=== PATIENT | male | born 1960 | race Caucasian/White ===

== ENCOUNTER 2018-04-29 10:35 | Emergency (ER) | payer OTHER ==
[~2018-04-29] VITALS: Ht 182.9 cm; Wt 98.4 kg
[~2018-04-29 10:35] MED LIST: ETOMIDATE 40 MG/20 ML VIAL. IV ONE; MIDAZOLAM HCL PF 5 MG/5 ML VIAL. ONE; PROPOFOL 10,000 MCG/ML (20ML) VIAL IV ONE; SUCCINYLCHOLINE 200 MG/10 ML VIAL. ONE
[2018-04-29] MEDS ORDERED: IV NORMAL SALINE 1,000ML 1,000 ML IV SCH (10:46)
[2018-04-29] MEDS ORDERED: IPRATRPIUM/ALBUTEROL 0.5/2.5MG 3 ML NEBU. NEB ONE (11:00)
[2018-04-29] MEDS ORDERED: methylPREDNISolone SOD SUCC PF 125 MG/2 ML VIAL. IV ONE (11:00)
--- NOTE | 2018-04-29 11:19 | RAD ---
Portable chest, 04/29/2018: HISTORY: Shortness of breath The heart size is normal. There is attenuation of the pulmonary vasculature in the upper lobes, particularly on the right, suggesting emphysema. No pulmonary consolidation is seen. There is no evidence of pleural fluid. IMPRESSION: 1. Probable emphysema. 2. No acute infiltrates. Electronically signed by: Rhys Vela MD (04/29/2018 11:16 AM) [facility]
[2018-04-29 11:22] LABS: BGAS PH 7.24 (7.35-7.46)
[2018-04-29 11:25] LABS: BASO % 0 % (0-3); EOS % 0 % (0-3); HEMATOCRIT 39.9 % (39.0-53.0); HEMOGLOBIN 12.4 g/dL (13.0-17.5); LYMPH # 0.4 x10^3/uL (1.0-4.8); LYMPH % 4 % (24-48); MEAN CORPUSCULAR HEMOGLOBIN 30 pg (25-35); MEAN CORPUSCULAR HGB CONC 31 g/dL (31-37); MEAN CORPUSCULAR VOLUME 98 fL (79-100); MONO # 0.5 x10^3/uL (0.0-1.1); MONO % 5 % (0-9); NEUT % 91 % (31-73); PLATELET COUNT 199 x10^3/uL (140-400); RED BLOOD COUNT 4.08 x10^6/uL (4.30-5.70); RED CELL DISTRIBUTION WIDTH 13.9 % (11.5-14.5)
[2018-04-29 11:46] LABS: INFLUENZA A PATIENT NEGATIVE (NEGATIVE); INFLUENZA B PATIENT NEGATIVE (NEGATIVE)
--- NOTE | 2018-04-29 11:48 | PHYS DOC ---
Past History Past Medical History: COPD, Depression Past Surgical History: Other Smoking: Non-smoker Alcohol Use: None Drug Use: None Social History Narrative: hx of drug use Adult General Chief Complaint Chief Complaint: SHORTNESS OF BREATH HPI HPI Patient is a 58 year old male who brought in by EMS because of shortness of breath and hypoxia. Patient has had history of COPD and usually takes 4 L of oxygen but for the last few days increase his oxygen to 5 and 60 L. The patient had increasing of shortness of breath with dry cough for the last 2 days without fever and chills, chest pain, sick contact. EMS reported that patient had O2 sat of 80% at 6 L of oxygen that improved with nonrebreathing mask and DuoNeb to 99% at arrival to ER. Patient refuses to answer most of the question and his helping for the history. Patient had history of intubation and admitting at [facility] previously and states he does not want to have intubation as long as possible. Review of Systems Review of Systems Constitutional: Denies fever or chills [] Eyes: Denies change in visual acuity, redness, or eye pain [] HENT: Denies nasal congestion or sore throat [] Respiratory: Reports cough and shortness of breath. Cardiovascular: No additional information not addressed in HPI [] GI: Denies abdominal pain, nausea, vomiting, bloody stools or diarrhea [] : Denies dysuria or hematuria [] Musculoskeletal: Denies back pain or joint pain [] Integument: Denies rash or skin lesions [] Neurologic: Denies headache, focal weakness or sensory changes [] Endocrine: Denies polyuria or polydipsia [] All other systems were reviewed and found to be within normal limits, except as documented in this note. Current Medications Current Medications Current Medications Medications (Trade) Dose Ordered Sig/Nelson Start Time Stop Time Status Last Admin Dose Admin Albuterol/ Ipratropium (Duoneb) 3 ml 1X ONCE 04/29/18 11:00 04/29/18 11:17 DC Methylprednisolone Sodium Succinate (SOLU-Medrol 125MG VIAL) 125 mg 1X ONCE 04/29/18 11:00 04/29/18 11:17 DC 04/29/18 11:11 125 MG Sodium Chloride 1,000 ml @ 1,000 mls/hr Q1H 04/29/18 10:46 04/29/18 11:45 DC 04/29/18 11:10 1,000 MLS/HR Allergies Allergies Allergies Coded Allergies Type Severity Reaction Last Updated Verified Penicillins Allergy Unknown 04/29/18 Yes hydrocodone Allergy Unknown 04/29/18 Yes Physical Exam Physical Exam Constitutional: Well nourished, moderate distress, non-toxic appearance. [] HENT: Normocephalic, atraumatic, oropharynx moist.] Eyes: PERRLA, EOMI, conjunctiva normal, no discharge. [] Neck: Normal range of motion, no tenderness, supple, no stridor. [] Cardiovascular: Tachycardia, no murmur [] Lungs & Thorax: Hyperventilation and tachypnea with moderate respiratory distress and decrease of bilateral air movement Abdomen: Bowel sounds normal, soft, no tenderness, no masses, no pulsatile masses. [] Skin: Warm, dry, no erythema, no rash. [] Back: No tenderness, no CVA tenderness. [] Extremities: No tenderness, no cyanosis, no clubbing, ROM intact, no edema. [] Neurologic: Alert and oriented X 3, normal motor function, no focal deficits noted. [] Psychologic: Affect is anxious Current Patient Data Vital Signs Vital Signs Date Time Temp Pulse Resp B/P (MAP) Pulse Ox O2 Delivery O2 Flow Rate FiO2 04/29/18 11:36 134 19 133/99 (110) 86 BiPAP/CPAP 04/29/18 10:40 98.4 6.0 Lab Results Laboratory Tests Test 04/29/18 10:46 04/29/18 10:58 Blood pH 7.24 (7.35-7.46) L Blood Gas PCO2 124 mmHg (35-46) *H Blood Gas PO2 63 mmHg (80-100) L Blood Gas HCO3 52 mmol/L (21-28) H Arterial Bld O2 Saturation (Calc) 83 % (92-99) L FiO2 40 % White Blood Count 10.0 x10^3/uL (4.0-11.0) Red Blood Count 4.08 x10^6/uL (4.30-5.70) L Hemoglobin 12.4 g/dL (13.0-17.5) L Hematocrit 39.9 % (39.0-53.0) Mean Corpuscular Volume 98 fL (79-100) Mean Corpuscular Hemoglobin 30 pg (25-35) Mean Corpuscular Hemoglobin Concent 31 g/dL (31-37) Red Cell Distribution Width 13.9 % (11.5-14.5) Platelet Count 199 x10^3/uL (140-400) Neutrophils (%) (Auto) 91 % (31-73) H Lymphocytes (%) (Auto) 4 % (24-48) L Monocytes (%) (Auto) 5 % (0-9) Eosinophils (%) (Auto) 0 % (0-3) Basophils (%) (Auto) 0 % (0-3) Neutrophils # (Auto) 9.0 x10^3uL (1.8-7.7) H Lymphocytes # (Auto) 0.4 x10^3/uL (1.0-4.8) L Monocytes # (Auto) 0.5 x10^3/uL (0.0-1.1) Eosinophils # (Auto) 0.0 x10^3/uL (0.0-0.7) Basophils # (Auto) 0.0 x10^3/uL (0.0-0.2) Lactic Acid Level 0.8 mmol/L (0.4-2.0) EKG EKG Urgent interpreted by me. EKG at 1331 showed sinus tachycardia at rate of 126, right axis deviation, ST and T wave abnormality in inferior leads, left ventricular strain, no acute extremity abnormalities. Radiology/Procedures Radiology/[place] [address] IMAGING REPORT Signed PATIENT: KENNETH OHARA ACCOUNT: [id number] : 1960 LOCATION: ER AGE: 58 SEX: M EXAM STATUS: PRE ER ORD. PHYSICIAN: DONA KENDRICK MD REASON: shortness of breath PROCEDURE: PORTABLE CHEST 1V Portable chest, 04/29/2018: HISTORY: Shortness of breath The heart size is normal. There is attenuation of the pulmonary vasculature in the upper lobes, particularly on the right, suggesting emphysema. No pulmonary consolidation is seen. There is no evidence of pleural fluid. IMPRESSION: 1. Probable emphysema. 2. No acute infiltrates. Electronically signed by: Rhys Vela MD (04/29/2018 11:16 AM) [facility] DICTATED AND SIGNED BY: RHYS VELA MD DATE: 04/29/18 1116 CC: DIANA LOZA DO; DONA KENDRICK MD ~ [place] [address] IMAGING REPORT Signed PATIENT: KENNETH OHARA ACCOUNT: [id number] : 1960 LOCATION: ER AGE: 58 SEX: M EXAM STATUS: REG ER ORD. PHYSICIAN: DONA KENDRICK MD REASON: postintubation PROCEDURE: PORTABLE CHEST 1V EXAM: Chest, single view. HISTORY: Intubation. COMPARISON: Chest radiograph obtained on the same date. FINDINGS: A frontal view of the chest is obtained. There is an endotracheal tube within the mid trachea. The tip is approximately 7 cm proximal to the rossy. There is slight increased interstitial opacity within the right mid and lower thorax, likely accentuated due to right greater than left upper lobe predominant emphysema. No consolidation is seen. The right lung base is excluded from the [id number]. There is a stable prominent cardiac silhouette. There is no pneumothorax. IMPRESSION: 1. Endotracheal tube within the mid trachea. 2. Bilateral upper lobe predominant emphysema with suspected chronic increased right mid thoracic interstitial changes. Electronically signed by: Cici Quintanilla MD (04/29/2018 1:23 PM) [place] [id number] DICTATED AND SIGNED BY: CICI QUINTANILLA MD DATE: 04/29/18 1323 CC: DIANA LOZA DO; DONA KENDRICK MD ~ Course & Med Decision Making Course & Med Decision Making Pertinent Labs and Imaging studies reviewed. (See chart for details) Evaluation of patient in ER showed 58-year-old male patient brought in by EMS because of hypoxia. Patient had just (at arrival to ER with O2 sat of 80s on 6 L of oxygen. ABG showed PCO2 of 123 and PO2 of 50s. Patient was started on nonrebreather and later on BiPAP and DuoNeb and Solu-Medrol was given with partial improvement of his condition. Patient had O2 sat of low 90s on nonrebreather. Patient informed about needs for intubation and patient and his agreed to have intubation and his signed the consent. Patient had uneventful intubation with increase of O2 sat to 100% but had some episodes of waking up on propofol drip that improved with bolus of Propofol and Versed. Patient did not have the blood pressure. Patient treated with IV fluid and antibiotic because of elevation of lactic acid with no sign of pneumonia in chest x-ray. Dr. Oliver informed at 1145 about needs of admission and recommended to admit patient to ICU at [facility]. He was informed about intubation of patient at 1256 and agreed with plan of care. Dragon Disclaimer Dragon Disclaimer This electronic medical record was generated, in whole or in part, using a voice recognition dictation system. Departure Departure: Impression: Primary Impression: Acute respiratory distress Additional Impressions: CO2 retention COPD exacerbation Sepsis Acute respiratory acidosis Hypernatremia Disposition: XF [facility] ([facility] at 1146) Admitting Physician: Carmen Oliver (accepted transfer to [facility] at 1145) Condition: GRAVE Referrals: DIANA LOZA DO (PCP) MODERATE SEDATION ASSESSMENT* RISKS/ALTERNATIVES Risks/Alternatives Risks and alternatives of this type of sedation and procedure discussed with: RISK/ALTERNATIVES DISCUSSED: Sig. Other H & P ON CHART H & P H & P on chart and reviewed for co-morbid conditions and appropriate labs. H&P ON CHART: Yes STATUS PREG STATUS ASSESSED: N/A MEDS/ALLERGIES REVIEWED Meds/Allergies Reviewed Medications and Allergies including time and route of recently administered narcotics and sedatives. MEDS/ALLERGIES REVIEWED: Yes ASA RATING ASA RATING: II AIRWAY ASSESSMENT Airway Assessment Airway patency, oral function limitations, presence of caps, crowns, dentures, partials, and ability to extend neck assessed. AIRWAY ASSESSMENT: Yes MALLAMPATI SCORE MALLAMPATI SCORE: I PRE-SEDATION ASSESSMENT PRE-SEDATION PHYSICAL: Yes Intubation Procedure Intubation Procedure Intub Indication: Hypoxia and acute respiratory distress and CO2 retention Consent: [] Medications Used: Etomidate 20 mg and succinylcholine 100 mg Procedure: The patient was placed in the neutral position. Cricoid pressure was given. Intubation was performed with direct vocal cord visualization via size 7 Garrison blade and 7.5 tube was placed ant fixed at 22 cm from teeth at 1248 with 1 times try. [ET SECURE: With device]. Initial confirmation of placement included [CO2 detector change of color, bilateral chest rise and bilateral breath sounds. chest x-ray to verify correct placement of the tube. The patient tolerated the procedure well]. Complications:none. Critical Care Time Critical care time was 90 minutes exclusive of procedures. Problem Qualifiers Additional Impressions: Sepsis Sepsis type: sepsis due to unspecified organism Qualified Codes: A41.9 - Sepsis, unspecified organism DONA KENDRICK MD Apr 29, 2018 11:48
[2018-04-29] MEDS ORDERED: IV NORMAL SALINE 50ML 50 ML ONE (12:06)
[2018-04-29] MEDS ORDERED: cefTRIAXone SODIUM 1 GM VIAL ONE (12:06)
[2018-04-29 12:07] LABS: ALBUMIN 3.4 g/dL (3.4-5.0); ALBUMIN/GLOBULIN RATIO 0.8 (1.0-1.7); CALCIUM 9.7 mg/dL (8.5-10.1); CREATININE 0.9 mg/dL (0.7-1.3); GFR 86.4; POTASSIUM 4.5 mmol/L (3.5-5.1); TOTAL BILIRUBIN 0.5 mg/dL (0.2-1.0); TOTAL PROTEIN 7.8 g/dL (6.4-8.2)
[2018-04-29] MEDS ORDERED: PROPOFOL 100 ML IV ONE (12:10)
[2018-04-29] MEDS ORDERED: SUCCINYLCHOLINE 200 MG/10 ML VIAL. ONE (12:15)
[2018-04-29] MEDS ORDERED: SUCCINYLCHOLINE 200 MG/10 ML VIAL. IV ONE (12:45)
[2018-04-29] MEDS ORDERED: ETOMIDATE 40 MG/20 ML VIAL. IV ONE (12:45)
--- NOTE | 2018-04-29 13:26 | RAD ---
EXAM: Chest, single view. HISTORY: Intubation. COMPARISON: Chest radiograph obtained on the same date. FINDINGS: A frontal view of the chest is obtained. There is an endotracheal tube within the mid trachea. The tip is approximately 7 cm proximal to the rossy. There is slight increased interstitial opacity within the right mid and lower thorax, likely accentuated due to right greater than left upper lobe predominant emphysema. No consolidation is seen. The right lung base is excluded from the [id number]. There is a stable prominent cardiac silhouette. There is no pneumothorax. IMPRESSION: 1. Endotracheal tube within the mid trachea. 2. Bilateral upper lobe predominant emphysema with suspected chronic increased right mid thoracic interstitial changes. Electronically signed by: Cici Max MD (04/29/2018 1:23 PM) [place] [id number]
[2018-04-29] MEDS ORDERED: IV NORMAL SALINE 1,000ML 1,000 ML IV ONE (13:45)
[2018-04-29] MEDS ORDERED: PROPOFOL 10,000 MCG/ML (20ML) VIAL IV ONE (13:45)
[2018-04-29 13:50] VITALS: BP 155/83
[2018-04-29 14:02] LABS: AMORPHOUS SEDIMENT,UR PRESENT /HPF; BACTERIA,URINE 0 /HPF (0-FEW); BILIRUBIN,URINE NEG (NEG); CLARITY,URINE HAZY; COLOR,URINE AMBER; GLUCOSE,URINE NEG (NEG); GRANULAR CASTS,URINE FEW /HPF; HYALINE CASTS, URINE OCC /HPF; NITRITE,URINE NEG (NEG); RBC,URINE 0 /HPF (0-2); SQUAMOUS EPITHELIAL CELL,UR OCC /LPF; UROBILINOGEN,URINE 0.2 mg/dL (0.2 mg/dL); WBC,URINE 0 /HPF (0-4)
--- NOTE | 2018-04-29 20:55 | EKG ---
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
== END 2018-04-29 14:10 | disposition short-term general hospital (02) ==
LOC: ER 10:35
DX: A41.9 Sepsis, unspecified organism (principal); R06.03 Acute respiratory distress; E87.2 Acidosis; J44.1 Chronic obstructive pulmonary disease with (acute) exacerbation; E87.0 Hyperosmolality and hypernatremia; F32.9 Major depressive disorder, single episode, unspecified; Z88.0 Allergy status to penicillin; Z88.5 Allergy status to narcotic agent
CPT/HCPCS: 31500; 36415; 36600; 51702; 71045; 80053; 81001; 82550; 82803; 82947; 83605; 83880; 84484; 85025; 85379; 87040; 87804; 93005; 94640; 94660; 96365; 96366; 96375; 99291; 99292; J0330; J0696; J2250; J2704; J2930; 94002; J7030